=== PATIENT | female | born 1995 | race Two or more races ===

== ENCOUNTER 2016-07-07 14:26 | Emergency (ER) | payer OTHER ==
[~2016-07-07] VITALS: Wt 65.5 kg
[~2016-07-07 14:26] MED LIST: IBUP800T25 PO; PEN500 PO
[2016-07-07] MEDS ORDERED: CEPH-443 PO (14:52)
[2016-07-07] MEDS ORDERED: IBUP-1542 PO (14:53)
[2016-07-07] MEDS ORDERED: CLIN-73 PO (14:53)
[2016-07-07] MEDS ORDERED: BEN25 PO (14:55)
--- NOTE | 2016-07-07 15:27 | ERD ---
ER Documentation Chief Complaint Date/Time DATE: 07/07/16 TIME: 15:12 Chief Complaint right arm bug bite/swelling x2days ago HPI Patient is a 20-year-old female presents to the emergency department with concerns of insect bite to her right arm. Patient states that 2 days ago she spent significant time [place]. Patient reports redness and increasing swelling to the affected area. Patient does report itching to the affected area. Patient denies any active bleeding or discharge. She also states that she started to have some throat pain earlier today. Patient states she is having trouble swallowing. Patient denies any trismus, drooling or hyperextension of her neck. Patient reports chills however she denies any fevers. Patient Denies taking any antipyretics. Patient denies any chest tightness, lip swelling, tongue swelling. Patient denies any nausea, vomiting, abdominal pain or pain with urination. Patient is up-to-date with her vaccinations. No recent travel. No sick contacts. Patient does report a history of strep pharyngitis. ROS All systems reviewed and are negative except as per history of present illness. Medications Home Meds Active Scripts Diphenhydramine Hcl* (Benadryl*) 25 Mg Cap, 25 MG PO Q6, #30 CAP Prov:FAM GAMBLE PA-C 07/07/16 Clindamycin Hcl* (Clindamycin Hcl*) 300 Mg Capsule, 300 MG PO TID for 10 Days, CAP Prov:FAM GAMBLE PA-C 07/07/16 Ibuprofen* (Motrin*) 600 Mg Tab, 600 MG PO Q6, #30 TAB Prov:FAM GAMBLE PA-C 07/07/16 Ibuprofen* (Motrin*) 800 Mg Tab, 800 MG PO Q6, #30 TAB Prov:ALEXYS RICARDO PA-C 12/21/14 Penicillin V Potassium* (Penicillin V K*) 500 Mg Tab, 500 MG PO BID for 10 Days , TAB Prov:ALEXYS RICARDO PA-C 12/21/14 Discontinued Scripts Cephalexin* (Keflex*) 500 Mg Capsule, 500 MG PO QID for 10 Days, CAP Prov:FAM GMABLE PA-C 07/07/16 Allergies Allergies: Coded Allergies: No Known Allergy (Unverified , 08/11/12) PMhx/Soc Hx Miscellaneous Medical Probl: Yes (ALLERGIES) Hx Alcohol Use: No Hx Substance Use: No Hx Tobacco Use: No FmHx Family History: No diabetes Physical Exam Vitals Vital Signs Date Time Temp Pulse Resp B/P Pulse Ox O2 Delivery O2 Flow Rate FiO2 07/07/16 14:28 99.3 99 20 123/77 95 Physical Exam GENERAL: Well-developed, well-nourished female. Appears in no acute distress. Speaking in full sentences. No muffled voice. HEAD: Normocephalic, atraumatic. No deformities or ecchymosis. EYE: Pupils equal, round, and reactive to light. EOMs intact. No conjunctival erythema. No eye discharge. ENT: External ear without any masses or tenderness. Auditory canals clear bilaterally. TM visualized bilaterally, non-erythematous, non-bulging. Nasal mucosa pink with no discharge. Oropharynx is erythematous with bilateral tonsillar swelling. Right tonsil appears to have exudates. No uvula deviation. No kissing tonsils. No drooling, no trismus. NECK: Supple. No meningismus. Normal ROM of the neck. LUNG: Clear to auscultation bilaterally. No rhonchi, wheezing, rales or coarse breath sounds. HEART: Regular rate and rhythm. No murmurs, rubs or gallops. BACK: No midline tenderness. EXTREMITIES: Equal pulses bilaterally. No peripheral clubbing, cyanosis or edema. No unilateral leg swelling. NEUROLOGIC: Alert and oriented to person, place and time. Moving all four extremities. 5/5 strength in all extremities. Normal speech. Steady gait. SKIN: Normal color. Warm and dry. No rashes or lesions. 6 cm erythematous, circular, slightly raised lesion noted patient's right upper arm. Normal warmth. No active bleeding or discharge noted. Patient is able to move all digits without any difficulty. Procedures/MDM MEDICAL DECISION MAKING: This is a 20-year-old female presents with concerns of an infected insect bite wound and throat pain. She reports being in the [place] 2 [place] ago. Patient developed throat pain yesterday. Patient denied any trismus, drooling or hyperextension of her neck. Vital signs were reviewed. Patient was afebrile. P patient was not hypoxic. ENT exam reveals findings consistent with strep pharyngitis. Given that patient does have a history of strep pharyngitis, I will treat the patient with course of antibiotics. Patient will be given clindamycin to also cover concerns of infected bite wound. Low suspicion for necrotizing fasciitis, sepsis, gangrene, Yousif-Jose syndrome, toxic epidural necrolysis, abscess, anaphylaxis, impetigo. Low suspicion for peritonsillar abscess, Khris's angina, retropharyngeal abscess, dental abscess , epiglottitis. PRESCRIPTIONS: Ibuprofen, Benadryl, Clindamycin DISCHARGE: At this time, patient is stable for discharge and outpatient management. Supportive therapies such as OTC throat lozenges and warm salt water gurgles were discussed. Patient advised to take full course of antibiotics. Patient was advised to continue to monitor her bug bite. Patient advised to return in 2 days for wound recheck. Patient advised to return sooner for any new or worsening symptoms including severe pain, spreading of redness, swelling, warmth or fevers or chills. I have instructed the patient to follow-up with his /her primary care physician in 1-2 days. I have instructed the patient to promptly return to the ER for any new or worsening symptoms including increased pain, fever, nausea, vomiting, weakness or LOC. The patient and/or family expressed understanding of and agreement with this plan. All questions were answered. Home care instructions were provided. Departure Diagnosis: Primary Impression: Strep pharyngitis Additional Impression: Infected bite wound Condition: Stable Patient Instructions: Insect Sting/Bite, Infected, Pharyngitis, Strep (Presumed ) Referrals: [facility] Additional Instructions: Call your primary care doctor TOMORROW for an appointment during the next 1-2 days.See the doctor sooner or return here if your condition worsens before your appointment time. Wound recheck advised in 2 days. Patient advised to return to the emergency department sooner for any new or worsening symptoms including but not limited to severe pain, spreading of redness, swelling, fevers or chills. FAM GAMBLE PA-C July 07, 2016 15:22 Referrals: [facility] Additional Instructions: Call your primary care doctor TOMORROW for an appointment during the next 1-2 days.See the doctor sooner or return here if your condition worsens before your appointment time. Wound recheck advised in 2 days. Patient advised to return to the emergency department sooner for any new or worsening symptoms including but not limited to severe pain, spreading of redness, swelling, fevers or chills. FAM GAMBLE PA-C July 07, 2016 15:22
== END 2016-07-07 15:19 | disposition home or self-care (01) ==
LOC: FTE 14:26
DX: J02.0 Streptococcal pharyngitis (principal); W57.XXXA Bitten or stung by nonvenomous insect and other nonvenomous arthropods, initial encounter; Y92.9 Unspecified place or not applicable
CPT/HCPCS: 99283

== ENCOUNTER 2017-09-01 04:15 | Emergency (ER) | END 2017-09-01 06:08 | disposition home or self-care (01) ==